=== PATIENT | male | born 1970 | race African-American/Black ===

== ENCOUNTER 2016-11-21 10:21 | Emergency (ER) | payer MEDICARE, OTHER ==
[~2016-11-21] VITALS: Ht 180.3 cm; Wt 83.9 kg
[~2016-11-21 10:21] MED LIST: HYDR-3658 PO; TAMS-12 PO
--- NOTE | 2016-11-21 10:35 | NUR ---
PT C/O BODY ACHES AND RECTAL PAIN S/P BOWEL CARE THIS MORNING. PT ON A WHEELCHAIR WITH PT FAMILY AT BEDSIDE. PLACED ON MONITOR. VSS.
[2016-11-21] MEDS ORDERED: HYDROCODONE/APAP 5/325MG 1 EACH TABLET ONE (11:28)
[2016-11-21] MEDS ORDERED: HYDROCODONE/APAP 5/325MG 1 EACH TABLET PO ONE (11:30)
--- NOTE | 2016-11-21 12:10 | NUR ---
Patient discharged to home in stable condition. Written and verbal after care instructions given. Patient verbalizes understanding of instruction. Denies any pain. Prescription given to patient.
[2016-11-21 12:12] VITALS: BP 110/85
== END 2016-11-21 12:13 | disposition home or self-care (01) ==
LOC: ER 10:23
DX: K59.00 Constipation, unspecified (principal)
CPT/HCPCS: 99282; A4606

== ENCOUNTER 2017-05-10 11:56 | Emergency (ER) | payer MEDICARE, OTHER ==
[~2017-05-10] VITALS: Ht 180.3 cm; Wt 83.9 kg
[2017-05-10 11:56] VITALS: BP 83/49
--- NOTE | 2017-05-10 12:34 | NUR ---
RADIOLOGY AT BEDSIDE FOR CHEST XRAY
[2017-05-10] MEDS ORDERED: predniSONE 20 MG TABLET ONE (14:19)
[2017-05-10] MEDS ORDERED: predniSONE 20 MG TABLET PO ONE (14:30)
== END 2017-05-10 14:24 | disposition home or self-care (01) ==
LOC: ER 11:58
DX: J18.9 Pneumonia, unspecified organism (principal); J40 Bronchitis, not specified as acute or chronic; G82.50 Quadriplegia, unspecified; Z98.890 Other specified postprocedural states
CPT/HCPCS: 71010; 99283; A4606; J7512; Z7610

== ENCOUNTER 2022-05-06 12:49 | Emergency (ER) | payer MEDICARE, OTHER ==
[~2022-05-06 12:49] MED LIST changes: -HYDR-3658 PO; +HYDR-3980 PO
--- NOTE | 2022-05-06 13:14 | NUR ---
call for triage not in the waiting room.
--- NOTE | 2022-05-06 13:26 | NUR ---
called for triage not in the waiting room
--- NOTE | 2022-05-06 13:38 | NUR ---
called for triage not in the waiting room
== END 2022-05-06 13:39 | disposition home or self-care (01) ==
LOC: ER 12:51
DX: Z53.21 Procedure and treatment not carried out due to patient leaving prior to being seen by health care provider (principal)

== ENCOUNTER 2024-09-11 09:42 | Emergency (ER) | payer MEDICARE, OTHER ==
[~2024-09-11] VITALS: Ht 180.3 cm; Wt 83.9 kg
[2024-09-11 10:01] VITALS: BP 124/76; TEMP 98.7; O2SAT 99
[2024-09-11] MEDS ORDERED: BENZONATATE 100 MG CAPSULE PO ONE (10:22)
[2024-09-11] MEDS: BENZONATATE 100 MG CAPSULE PO PRN (10:27)
[2024-09-11] MEDS ORDERED: BENZ-13 PO (10:43)
[2024-09-11] MEDS ORDERED: ALBU18HF2 INH (10:43)
== END 2024-09-11 11:00 | disposition home or self-care (01) ==
LOC: ER 09:42
DX: R05.9 Cough, unspecified (principal); R11.0 Nausea; F19.10 Other psychoactive substance abuse, uncomplicated; Z86.69 Personal history of other diseases of the nervous system and sense organs; Z60.2 Problems related to living alone
CPT/HCPCS: 71045-TC